=== PATIENT | male | born 1950 | race Caucasian/White ===

== ENCOUNTER → 2016-09-11 | Outpatient (CLI) | payer OTHER | LOC: FCPNEURO 23:16 | PROVIDERS: ATTEND Psychiatry & Neurology Sleep Medicine | DX: G47.33 Obstructive sleep apnea (adult) (pediatric) (principal); G47.31 Primary central sleep apnea ==

== ENCOUNTER → 2018-06-21 | Outpatient (CLI) | payer OTHER | LOC: FIMAGING 12:04 | PROVIDERS: ATTEND Physician Assistant Surgical | DX: G25.0 Essential tremor (principal) ==

== ENCOUNTER 2018-07-10 13:57 | Outpatient (CLI) | payer OTHER ==
[2018-07-10] MEDS ORDERED: FLUMAZENIL 0.5 MG/5 ML MDV IVP PRN (14:23)
[2018-07-10] MEDS ORDERED: MIDAZOLAM 2 MG/2 ML VIAL IVP PRN (14:23)
[2018-07-10] MEDS ORDERED: fentaNYL 100 MCG/2 ML INJ IVP PRN (14:23)
[2018-07-10] MEDS ORDERED: MEPERIDINE 25 MG/ML SYR IVP PRN (14:23)
[2018-07-10] MEDS ORDERED: NALOXONE HCL 0.4 MG/ML INJ IVP PRN (14:23)
[2018-07-10] MEDS ORDERED: NS 1,000 ML IV SCH (14:30)
[2018-07-10] MEDS ORDERED: GADOBUTROL 10 ML VIAL IVP ONE (14:57)
[2018-07-10] MEDS ORDERED: fentaNYL 100 MCG/2 ML INJ ONE (15:26)
[2018-07-10] MEDS ORDERED: MIDAZOLAM 2 MG/2 ML VIAL ONE (15:26)
--- NOTE | 2018-07-10 15:28 | PDPROPOC ---
Sedation Plan of Care Sedation Plan of Care: vital signs stable, mental status noted, patient educated of risks, benefits, alternatives, patient can tolerate sedation ASA Classification: ASA 2 Planned drugs: fentanyl, midazolam Mallampati Score: Class 2 Mallampati Reference Image: Patient passed 3-3-2 rule?: Yes
--- NOTE | 2018-07-10 15:28 | PDGENHP ---
History & Physical Chief Complaint: tremors History of Present Illness: pre-op mri for tremors. Pertinent Past, Social, Family History: previous smoker. colonoscopy. had neuropsych evaluation. Relevant Physical Exam: in no distress today Cardiorespiratory Assessment: rrr, cta
[2018-07-10 17:41] VITALS: BP 142/88
== END 2018-07-10 17:31 | disposition home or self-care (01) ==
LOC: FIMAGING 13:57
PROVIDERS: ATTEND Physician Assistant Surgical
DX: G25.0 Essential tremor (principal)
CPT/HCPCS: 70553; A9585; J2250; J3010

== ENCOUNTER 2018-07-12 07:15 | Inpatient (IN) | payer OTHER ==
--- NOTE | 2018-07-11 16:38 | GHP ---
[f rep st] PREOP HISTORY AND PHYSICAL DATE OF ADMISSION: 07/18/2018 HISTORY OF PRESENT ILLNESS: The patient is a 67-year-old male with essential tremor. The tremor is present bilaterally; however, is more severe in the right hand. He is also right hand dominant. He has a history of essential tremor. His tremor has worsened over the past several years. He has tried treating his tremor with medications, like propranolol and primidone without much relief. PAST MEDICAL HISTORY: Essential tremor. PAST SURGICAL HISTORY: No known surgeries. SOCIAL HISTORY: Patient is retired and . He admits to drinking alcohol socially. Used to be a tobacco user but quit 35 years ago. ALLERGIES: No known drug allergies. CURRENT HOME MEDICATIONS: Requip, lovastatin. REVIEW OF SYSTEMS: Negative except for HPI. FAMILY HISTORY: No pertinent neurosurgical family history. PHYSICAL EXAMINATION: GENERAL: The patient is see and examined, appears to be in no apparent distress. Mood and affect are appropriate. Alert and oriented. HEENT: Pupils are equal and reactive. Extraocular movements are intact. Facial expression is symmetrical. Tongue is midline with protrusion. Hearing is grossly intact. MUSCULOSKELETAL: Muscle strength is well preserved in his upper and lower extremities at a 5/5 and sensation is intact to light touch. ASSESSMENT/PLAN: In summary, the patient is a 67-year-old male with essential tremor. We have discussed proceeding with deep brain stimulation as a surgical option for treatment of his tremor. He has been deemed a suitable candidate through neuropsych evaluation by Dr. Roberto. The patient would like to move forward with deep brain stimulation. We will proceed first by implanting a left DBS lead to the VIM for his right hand tremor. The risks, benefits, and procedure were discussed in detail with the patient. The patient has agreed and consented to proceed with left DBS lead placement to the VIM. /[id number]/MODL MTDD
[2018-07-18] MEDS ORDERED: LR 1,000 ML IV ONE (05:58)
[2018-07-18] MEDS ORDERED: CEFUROXIME 1,500 MG in NS 50 ML IV ONE (06:00)
[2018-07-18] MEDS ORDERED: THROMBIN (BOVINE) 20,000 UNIT VIAL TP ONE (06:36)
[2018-07-18] MEDS ORDERED: GENTAMICIN SULFATE 80 MG/2 ML VIAL ONE (06:37)
[2018-07-18] MEDS ORDERED: LIDOCAINE 2% JELLY 20 ML (UROJECT) ONE (06:37)
[2018-07-18] MEDS ORDERED: BUPIVACAINE 0.25% 30 ML SDV ONE (06:37)
[2018-07-18] MEDS ORDERED: CHLORHEXIDINE GLUC HIBICLENS 118 ML BTL TP ONE (06:37)
[2018-07-18] MEDS ORDERED: POVIDONE-IODINE 30 GM OINTTUBE TP ONE (06:38)
[2018-07-18] MEDS ORDERED: EPINEPHrine 1 MG/ML INJ ONE (06:38)
--- NOTE | 2018-07-18 06:53 | PDHPUP ---
History & Physical Update H&P update statement: This history and physical update is based on an assessment of the patient which was completed after admission or registration (within 24 hours), but prior to the surgery/procedure. H&P update: H&P reviewed & patient examined, no change in patient's condition since H&P completed
[2018-07-18 07:03] LABS: PLATELET COUNT 178 10^3/uL (150-400)
[2018-07-18 07:14] LABS: INR 1.02 (0.83-1.16)
[2018-07-18] MEDS ORDERED: PROPOFOL 200 MG/20 ML VIAL ONE ×2 (07:27→08:02)
[2018-07-18] MEDS ORDERED: DEXMEDETOMIDINE HCL 400 MCG in NS 100 ML IV ONE (07:30)
[2018-07-18] MEDS ORDERED: fentaNYL 100 MCG/2 ML INJ ONE ×2 (07:59→08:47)
[2018-07-18] MEDS ORDERED: PROPOFOL/EMULSION 500 MG/50 ML BOTTLE IV ONE (08:21)
[2018-07-18] MEDS ORDERED: ALBUTEROL 3 ML DEYVIAL IH PRN (08:51)
[2018-07-18] MEDS ORDERED: ONDANSETRON 4 MG/2 ML VIAL IVP PRN ×2 (08:51→10:49)
[2018-07-18] MEDS ORDERED: oxyCODONE IR 5 MG TAB PO PRN (08:51)
[2018-07-18] MEDS ORDERED: DEXAMETHASONE 4 MG/ML VIAL IVP PRN (08:51)
[2018-07-18] MEDS ORDERED: HYDROmorphONE/DILAUDID 2 MG/ML INJ IVP PRN (08:51)
[2018-07-18] MEDS ORDERED: NALOXONE HCL 0.4 MG/ML INJ IVP PRN (08:51)
[2018-07-18] MEDS ORDERED: ACETAMINOPHEN 500 MG TAB PO PRN (08:51)
[2018-07-18] MEDS ORDERED: fentaNYL 100 MCG/2 ML INJ IVP PRN (08:51)
--- NOTE | 2018-07-18 08:51 | PDANEPAE ---
ANE History of Present Illness DBS ANE Past Medical History - Cardiovascular History Hx Hypertension: No Hx Arrhythmias: No Hx Chest Pain: Yes Hx Coronary Artery / Peripheral Vascular Disease: No Hx CHF / Valvular Disease: No Cardiovascular History Comment: PERICARDITIS 10 YEARS AGO - Pulmonary History Hx COPD: No Hx Asthma/Reactive Airway Disease: No Hx Recent Upper Respiratory Infection: No Hx Oxygen in Use at Home: Yes O2 in Use at Home (L/minute): 2.5 Hx Sleep Apnea: Yes Sleep Apnea Screening Result - Last Documented: Positive Pulmonary History Comment: 2.5 L WITH CPAP AT [facility] - Neurologic History Hx Cerebrovascular Accident: No Hx Seizures: No Hx Dementia: No Neurologic History Comment: HAS BILATERAL TREMORS ON CLONAZEPAM - Endocrine History Hx Diabetes: No - Renal History Hx Renal Disorders: No - Liver History Hx Hepatic Disorders: No - Neurological & Psychiatric Hx Hx Neurological and Psychiatric Disorders: No Neurological / Psychiatric History Comment: RAHUL TREMOR - Cancer History Hx Cancer: No - Congenital Disorder History Hx Congenital Disorders: No - GI History Hx Gastrointestinal Disorders: Yes Gastrointestinal History Comment: HERNIA REP - Other Health History Other Health History: WISDOM AND TONSILS - Chronic Pain History Chronic Pain: Yes (KNEE) - Surgical History Prior Surgeries: TONSIL CHILD. HERNIA ANE Review of Systems Review of Systems: - Exercise capacity METS (RN): 4 METS ANE Patient History - Allergies Allergies/Adverse Reactions: No Known Allergies Allergy (Verified 06/22/18 10:17) - Home Medications Home Medications: Lovastatin 40 mg PO HS 06/22/18 [Last Taken 07/17/18] Primidone [Mysoline 50mg (RX)] 75 mg PO HS 06/22/18 [Last Taken 07/17/18] Propranolol HCl [Inderal Xl] 80 mg PO BID 06/22/18 [Last Taken 07/17/18] rOPINIRole HCL [Requip 2mg (*)] 4 mg PO HS 06/22/18 [Last Taken 07/17/18] Multivitamins [Multivitamin (*)] 1 each PO DAILY 07/06/18 [Last Taken 07/17/18] - NPO status NPO Since - Liquids (Date): 07/17/18 NPO Since - Liquids (Time): 19:30 NPO Since - Solids (Date): 07/17/18 NPO Since - Solids (Time): 19:30 - Smoking Hx Smoking Status: Former smoker - Family Anes Hx Family Hx Anesthesia Complications: NONE ANE Labs/Vital Signs - Labs Result Diagrams: 07/18/18 06:30 07/18/18 06:30 - Vital Signs Blood Pressure: 115/77 Heart Rate: 62 Respiratory Rate: 18 O2 Sat (%): 94 Height: 170.18 cm Weight: 104.326 kg ANE Physical Exam - Airway Neck exam: FROM, increased neck circumference, short neck Mallampati Score: Class 2 Mouth exam: normal dental/mouth exam - Pulmonary Pulmonary: clear to auscultation - Cardiovascular Cardiovascular: regular rate and rhythym - ASA Status ASA Status: III ANE Anesthesia Plan Anesthesia Plan: MAC
[2018-07-18] MEDS ORDERED: ONDANSETRON 4 MG/2 ML VIAL ONE (10:34)
[2018-07-18] MEDS ORDERED: POLYETHYLENE GLYCOL 3350 17 GM PKT PO PRN (10:49)
[2018-07-18] MEDS ORDERED: MAGNESIUM HYDROXIDE 30 ML UDCUP PO PRN (10:49)
[2018-07-18] MEDS ORDERED: BISACODYL 10 MG SUPP PR PRN (10:49)
[2018-07-18] MEDS ORDERED: LACTULOSE 20 GM/30 ML UDCUP PO PRN (10:49)
--- NOTE | 2018-07-18 10:49 | POSTOPPROG ---
Post Op Note Date of Operation: 07/18/18 Surgeon: Bibi Wallace Bus Mechanic: Ruth Smith PA-C Anesthesia: IV Sedation, Local (Specify) Pre-op Diagnosis: essential tremor Post-op Diagnosis: essential tremor Procedure: Left DBS VIM lead placement Inf/Abcess present in the surg proc area at time of surgery?: No Depth: Deep Incisional (Fascial) EBL: Minimal Plan Plan: 67 yo male s/p left VIM DBS lead placement for essential tremor - neuro checks - pain control - advance diet as tolerated - maintain SBP < 140 - postop head CT pending - if head CT stable then transfer to the floor - dispo: home tomorrow Exam Awake. Alert Following commands strength full
--- NOTE | 2018-07-18 10:50 | POSTANESTH ---
Post Anesthetic Evaluation Cardiovascular Status: Normal, Stable Respiratory Status: Normal, Stable Level of Consciousness/Mental Status: Can Participate in Eval, Mildly Sleepy, Arousable Pain Control: Adequate, Prn Tx Ordered Nausea/Vomiting Control: Adequate, Prn Tx Ordered Complications Possibly Related to Anesthesia: None Noted
[2018-07-18] MEDS ORDERED: HYDROCODONE/APAP 5/325 TAB PO PRN (10:51)
[2018-07-18] MEDS ORDERED: hydrALAZINE 20 MG/ML VIAL IVP PRN (10:51)
--- NOTE | 2018-07-18 10:57 | GOP ---
[f rep st] OPERATIVE REPORT DATE OF OPERATION: 07/18/2018 SURGEON: Bibi Wallace DO NEUROSURGEON: Bibi Wallace DO PI/SENIOR RESEARCH ASSOCIATE: Ruth Smith PA-C. PREOPERATIVE DIAGNOSIS: Essential tremor. POSTOPERATIVE DIAGNOSIS: Essential tremor. PROCEDURE PERFORMED: 1. Left deep brain stimulator lead placement with Medtronic [id number] lead to the ventral intermediate nu cleus of the thalamus. 2. Stealth stereotaxis. FINDINGS: SPECIMENS: None. ESTIMATED BLOOD LOSS: 10 mL. INDICATIONS: This is a -kbxd-nun male who has been found to be a good candidate for deep b rain stimulation to the VIM nucleus of the thalamus. He has elected to move forward with left-sided stimulator lead placement. DESCRIPTION OF PROCEDURE: He was identified and consented. Sites were marked. Brought to the [facility] room. Anesthetized under local with MAC. Hair was clipped with the OR clippers. Head was jessika nsed with ChloraPrep. We anesthetized the pin incision sites with 0.25% Marcaine with epinephrine. Put povidone iodine on the pins and placed the Leksell frame stereotactically. We then performed a s tereotactic spin with the O-arm 2 and the localizer box, merging this in the S8 frame link software t o the preoperative plan which was an ACPC distance of 28.7, an X of -15.5 to a Y of -7.01 and a Z of -0.14. The entry point was an X of -40.70, Y of 33.69, a Z of 72.69. This corresponded at 19.1 degr ees off midsagittal, 60.8 degrees off midaxial. This all corresponded to Leksell frame coordinates a fter frame registration of an X of 114.5, a Y of 100.5, a Z of 103.5, a ring of 73 degrees, and arc o f 106.5 degrees. He was prepped and draped in the usual sterile fashion. These Leksell frame settin gs were set and triple checked by all providers in the room. The incision site was marked using the cannula and the Leksell frame coordinates. A half-cordero incision was anesthetized with 0.25% Marcaine with epinephrine. Incision was made with a 10 blade. Periosteal was used to elevate the periosteum. Randell clips were used for hemostasis. We then marked the bone with the cannula and then performed a maritime pilot hole. Then drilled a 14 mm Jolanta bur hole, waxed the bone edges, placed the Stimloc device, locked it into place with 5 mm Synthes sc rews, verified the clipping mechanism clipped and locked. We opened the dura with an 11 blade and co agulated with bipolar cautery. Then inserted a center and posterior tract in this patient and then p lugged the hole with a Gelfoam and DuraSeal. Removed the internal cannula, placed the microelectrode s, performed microelectrode recording, got excellent microelectrode recording. It was required that I have an event marketing assistant for this procedure at this point as I needed to remain scrub bed while the BERYL was being performed by the unscrubbed person. Please refer to the BERYL recording di ctation by Ruth Smith. However, we did get excellent motor driving deep and light touch, as wel l as multiple tremor cells. At macro stim, we found that the center tract was the better tract with lower side effects. We elected to place the lead here with the bottom of the contact at the target. The lead was measured and marked. The microelectrodes were removed and we drove to target. We then placed the lead to the appropriate level. We tested each contact. We had excellent tremor control, well programmable lead, elected to leave the lead here. Took an x-ray with the bomb sites, retracte d the cannula, placed the clipping mechanism, clipped and locked it, marked the lead. Took an x-ray and verified it had not migrated. Removed the stylet, brought the lead down and out, placed it near the groove, placing the cap on the lead. We took another x-ray. It had not migrated. Placed the ex tension boot over the lead, placed the extension over the lead protecting each contact. Used the tor que wrench, locked it down. Brought the boot over the extension lead complex, tied it into position with 2-0 silk ties at 2 positions, tunneled posterior with periosteal elevator. Anesthetized the sta b incision posterior with 0.25% Marcaine with epinephrine. Made a stab incision with 11 blade, tunne led posterior to anterior, brought the lead extension down and out the skin, coiling the lead posteri or and around the incision copiously. I took a final x-ray. It had not migrated. Copiously irrigated with over a liter of gentamicin-infused saline. Closed the galea with 2-0 Vicryl pop-offs. The skin was closed with 3-0 running nylon. The wound was dressed with Xeroform and Telf a stapled down. Removed the Leksell frame and wrapped the head. Patient tolerated the procedure wel l. There were no complications. This is an excellent programmable lead. FLUIDS: 800 mL crystalloid. URINE OUTPUT: None. DRAINS: None. COMPLICATIONS: None. /[id number]/MODL
[2018-07-18] MEDS ORDERED: NS W/ 20 KCl/L 1,000 ML IV SCH (11:00)
--- NOTE | 2018-07-18 14:48 | GPN ---
[f rep st] PROCEDURE NOTE DATE OF PROCEDURE: 07/18/2018 PREPROCEDURE DIAGNOSIS: Essential tremor. POSTPROCEDURE DIAGNOSIS: Essential tremor. PROCEDURE PERFORMED: Intraoperative functional subcortical mapping by microelectrode recording and s timulation. COMPLICATIONS: None. INDICATIONS FOR PROCEDURE: Determination of optimal electrode lead placement for deep brain stimulat ion therapy for essential tremor to the VIM. DESCRIPTION OF PROCEDURE: Following the incision on the left, a bur hole was drilled. The arc was t hen arranged with the following coordinates: X 114.5, Y 100.5, Z 103.5, ring 73, arc 106.5. The rec ording microelectrode was then slowly advanced into the brain using a center and posterior tract. Ce ll bursts were noted above target at 15 and 13. There was evidence of change in stimulation with pas sive elbow flexion at 11.8, above target on the center tract, and recording in the center tract began to be robust, around 9.8. We exited VIM at 2.0 above target. In the posterior tract, recordings be michael to be robust, at 9.8 above target. There was evidence of a tremor cell at 9.1 above target and 6 .3 above target. There was change in stimulation with passive elbow flexion at 7.7 above target and to deep touch at the forearm at 4.5 above target. There was change in recordings with light touch at 3.0 above target. We exited VIM at 2.0 above target. We then proceeded with macro stimulation at 5 above target, utilizing the posterior tract. Patient had persistent paresthesias at 1.0. We then e lected to proceed with macro stimulation of the center tract. Patient had improved tremor with trans ient tingling at 3.0. Given this microelectrode recording, we elected to proceed with test stimulati on using the center tract. At 0-, patient had persistent tingling at 1.5 and possibly speech difficu lties with improved tremor. At 1-, patient had improved tremor at 1.5 with transient tingling and po ssible speech difficulties at 2.0. At 2-, patient had improved tremor with no side effects. At 3-, patient had slightly improved tremor and no side effects, up to 3.5. We elected to place the lead in the center tract with the bottom of the lead at target due to the microelectrode recordings and the test stimulation achieved. The patient tolerated the surgery well and was transferred to the floor. /[id number]/MODL
[2018-07-18] MEDS: CEFUROXIME 1,500 MG in NS 50 ML IV SCH ×2 (15:46→23:17)
--- NOTE | 2018-07-18 17:33 | PDMN ---
Medical Necessity Medical necessity: [facility] IP only surgery; cpt 50580 Deep Brain Lead Placement
[2018-07-18] MEDS: ACETAMINOPHEN 325 MG TAB PO PRN ×2 (18:26→23:31)
[2018-07-18] MEDS: SENNOSIDES/DOCUSATE SODIUM TAB PO SCH (20:44)
[2018-07-18] MEDS: PROPRANOLOL SR 80 MG CAP PO SCH (20:50)
[2018-07-18] MEDS ORDERED: PRIMIDONE 50 MG TAB PO SCH (21:00)
[2018-07-18] MEDS ORDERED: PRAVASTATIN SODIUM 40 MG TAB PO SCH (21:00)
[2018-07-19] MEDS: ACETAMINOPHEN 325 MG TAB PO PRN ×2 (05:54→12:04)
[2018-07-19] MEDS: PROPRANOLOL SR 80 MG CAP PO SCH (08:16)
[2018-07-19] MEDS: SENNOSIDES/DOCUSATE SODIUM TAB PO SCH (08:17)
--- NOTE | 2018-07-19 08:42 | NEUSURGPN ---
Date of Surgery: 07/18/18 Post Op Day: 1 Assessment/Plan: 67 yo male s/p left VIM DBS lead placement for essential tremor - neuro stable - pain controlled - tolerating diet - postop head CT without evidence of intracranial hemorrhage - discharge home today Subjective: Minimal surgical pain. Improved right hand tremor. Objective: Awake. Alert. PERRL. EOMI Facial expression symmetrical Muscle strength full at 5/5 - Physician Discussed Patient with DrRadha: Rodrigo Neurosurgery Physical Exam - Vitals, I&O, Labs I and O 07/18/18 07/19/18 07/20/18 05:59 05:59 05:59 Intake Total 4134 Output Total 20 Balance 4114 Weight 104.326 kg Intake: Oral (ml) 1080 IV Intake (ml) 1800 IV Infused (ml) 1254 Cefuroxime 1,500 mg In Ns 50 50 ml @ 200 mls/hr IV ONCALL ONE Rx#:[id number] NS W/ 20 KCl/L 1,000 ml @ 1204 100 mls/hr IV CONT ARLIN Rx#:[id number] Output: Estimated Blood Loss (ml) 20 Other: Intake Quantity Yes Sufficient Number of Voids Toilet 4 1 Vital Signs Temp Pulse Resp BP Pulse Ox 36.6 C 93 17 133/83 H 90 L 07/19/18 07:46 07/19/18 07:46 07/19/18 07:46 07/19/18 07:46 07/19/18 07:46 Laboratory Results 07/18/18 06:30 07/18/18 06:30 ICD10 Worksheet Patient Problems: Problems Problem Status Onset Osteoarthritis of knee Acute
[2018-07-19] MEDS ORDERED: MULTIVITAMINS 1 EACH TAB PO SCH (09:00)
--- NOTE | 2018-07-19 10:40 | ASMTLACE ---
MISSY Length of stay for Answers: 2 days current admission Acuity / Level of Answers: Yes Care: Did the patient have an inpatient admission? # of Emergency department Answers: 0 visits in the last 6 months Score: 5 Date Signed: 07/19/2018 10:40 AM Electronically Signed By:MARLYS Nair
--- NOTE | 2018-07-19 10:44 | ASMTCMCOM ---
CM Note CM Note Notes: Pt had planned DBS placement for essential tremor. Pt was pre-arranged with [facility] by MD office, spoke with pt who declines HHC. Pt medically stable for d/c, no CM d/c needs identified. Date Signed: 07/19/2018 10:44 AM Electronically Signed By:MARLYS Nair
[2018-07-19 11:20] VITALS: BP 140/87
--- NOTE | 2018-07-19 14:52 | GDS ---
[f rep st] DISCHARGE SUMMARY ADMITTING DIAGNOSIS: Essential tremor. DISCHARGE DIAGNOSIS: Essential tremor. PROCEDURE PERFORMED: Left deep brain stimulation lead placement to the ventral intermediate nucleus of thalamus (VIM). CONSULTS: Physical and occupational therapy. HOSPITAL COURSE: The patient is a 67-year-old male who presented to the hospital to proceed with iman p brain stimulation as treatment for his right hand tremor. He underwent surgery by Dr. Bibi Wallace on July 18 with placement of a left deep brain stimulator lead to the VIM. The patient tolerated t he surgery well without complications and was transferred to the floor for further neurological check s and pain control. His postoperative head CT showed no acute intracranial changes or evidence of he morrhage. The patient was seen by Physical and Occupational therapy. On the following morning, the patient was tolerating a diet, voiding without difficulty, pain was controlled and he was medically s table and, thus, he was deemed suitable for discharge. He was discharged to home on July 19, 2018. DISCHARGE INSTRUCTIONS: The patient was asked to follow up with Dr. Bibi Wallace in 2 weeks for sutu re removal and wound check. He is to refrain from any strenuous activities, such as lifting more niyah n 10 pounds and bending. DISCHARGE MEDICATIONS: [place] 5/325 mg 1 tablet every 6 hours as needed for pain. /[id number]/MODL
== END 2018-07-19 12:39 | disposition home or self-care (01) | DRG 27 ==
LOC: F3E 07-18 05:41 → F3N 07-18 13:31
PROVIDERS: ADMIT Neurological Surgery; ATTEND Neurological Surgery
PROC: 00H03MZ Insertion of Neurostimulator Lead into Brain, Percutaneous Approach (ICD-10-PCS; principal; 2018-07-18 07:30)
DX: G25.0 Essential tremor (principal); Z87.891 Personal history of nicotine dependence
CPT/HCPCS: 97161-GP; 97165-GO; C1713; J0171; J0360; J0697; J1580; J2405; J2704; J3010

== ENCOUNTER 2018-08-08 05:41 | Day surgery (SDC) | payer OTHER ==
[2018-08-08] MEDS ORDERED: ACETAMINOPHEN 500 MG TAB PO ONE (06:25)
[2018-08-08] MEDS ORDERED: ceFAZolin 2 GM/DEXTROSE 100 ML IV ONE (06:25)
[2018-08-08] MEDS ORDERED: LR 1,000 ML IV SCH (07:00)
[2018-08-08] MEDS ORDERED: LR 1,000 ML IV ONE (07:03)
[2018-08-08] MEDS ORDERED: CHLORHEXIDINE GLUC HIBICLENS 118 ML BTL TP ONE (07:08)
[2018-08-08] MEDS ORDERED: LIDOCAINE 1% 300 MG/30 ML SDV ONE (07:08)
[2018-08-08] MEDS ORDERED: BUPIVACAINE/EPI 0.25% 30 ML SDV ONE (07:09)
[2018-08-08] MEDS ORDERED: GENTAMICIN SULFATE 80 MG/2 ML VIAL ONE (07:09)
--- NOTE | 2018-08-08 07:19 | PDANEPAE ---
ANE History of Present Illness stage 2 battery for DBS ANE Past Medical History - Cardiovascular History Hx Hypertension: No Hx Arrhythmias: No Hx Chest Pain: No Hx Coronary Artery / Peripheral Vascular Disease: No Hx CHF / Valvular Disease: No Hx Palpitations: No Cardiovascular History Comment: PERICARDITIS 10 YEARS AGO - Pulmonary History Hx COPD: No Hx Asthma/Reactive Airway Disease: No Hx Recent Upper Respiratory Infection: No Hx Oxygen in Use at Home: No Hx Sleep Apnea: Yes Sleep Apnea Screening Result - Last Documented: Positive Pulmonary History Comment: 2.5 L WITH CPAP AT NOC - Neurologic History Hx Cerebrovascular Accident: No Hx Seizures: No Hx Dementia: No Neurologic History Comment: HAS BILATERAL TREMORS - Endocrine History Hx Diabetes: No - Renal History Hx Renal Disorders: No - Liver History Hx Hepatic Disorders: No - Neurological & Psychiatric Hx Hx Neurological and Psychiatric Disorders: No Neurological / Psychiatric History Comment: RAHUL TREMOR - Cancer History Hx Cancer: No - Congenital Disorder History Hx Congenital Disorders: No - GI History Hx Gastrointestinal Disorders: Yes Gastrointestinal History Comment: HERNIA REP - Other Health History Other Health History: WISDOM AND TONSILS - Chronic Pain History Chronic Pain: Yes (KNEE) - Surgical History Prior Surgeries: DBS LEAD PLACEMNENT. RAHUL KNEE REPLACEMENTS. TONSIL CHILD. HERNIA ANE Review of Systems Review of Systems: - Exercise capacity METS (RN): 4 METS ANE Patient History - Allergies Allergies/Adverse Reactions: No Known Allergies Allergy (Verified 08/08/18 06:56) - Home Medications Home medications: home medication list seen and reviewed Home Medications: Lovastatin 40 mg PO HS 06/22/18 [Last Taken 08/07/18] Primidone [Mysoline] 75 mg PO HS 06/22/18 [Last Taken 08/07/18] Propranolol HCl [Inderal Xl] 80 mg PO BID 06/22/18 [Last Taken 08/07/18] rOPINIRole HCL [Requip 2mg (*)] 4 mg PO HS 06/22/18 [Last Taken 08/07/18] Multivitamins [Multivitamin (*)] 1 each PO DAILY 07/06/18 [Last Taken 08/07/18] - NPO status NPO Status: no food or drink >8 hours NPO Since - Liquids (Date): 08/07/18 NPO Since - Liquids (Time): 19:00 NPO Since - Solids (Date): 08/07/18 NPO Since - Solids (Time): 19:00 - Anes Hx Anes Hx: no prior problems - Smoking Hx Smoking Status: Former smoker - Alcohol Use Alcohol Use: None - Family Anes Hx Family Anes Hx: none Family Hx Anesthesia Complications: NONE ANE Labs/Vital Signs - Labs - CBC WBC: reviewed and okay - Vital Signs Blood Pressure: 114/76 Heart Rate: 65 Respiratory Rate: 18 O2 Sat (%): 94 Height: 172.72 cm Weight: 104.326 kg ANE Physical Exam - Airway Neck exam: FROM Mallampati Score: Class 2 Mouth exam: normal dental/mouth exam - Pulmonary Pulmonary: no respiratory distress - Cardiovascular Cardiovascular: regular rate and rhythym - ASA Status ASA Status: II ANE Anesthesia Plan Anesthesia Plan: general endotracheal anesthesia Total IV Anesthesia: No
[2018-08-08] MEDS ORDERED: REMIFENTANIL HCL 1 MG VIAL ONE (07:30)
[2018-08-08] MEDS ORDERED: fentaNYL 100 MCG/2 ML INJ ONE (07:30)
[2018-08-08] MEDS ORDERED: PROPOFOL/EMULSION 500 MG/50 ML BOTTLE IV ONE (07:30)
[2018-08-08] MEDS ORDERED: ONDANSETRON 4 MG/2 ML VIAL ONE (07:31)
[2018-08-08] MEDS ORDERED: LIDOCAINE 2% 100 MG/5 ML SYR ONE (07:31)
[2018-08-08] MEDS ORDERED: LIDOCAINE HCL 160 MG/4 ML LTA KIT TP ONE (07:31)
[2018-08-08] MEDS ORDERED: DEXAMETHASONE 4 MG/ML VIAL ONE (07:31)
[2018-08-08] MEDS ORDERED: ePHEDrine SULFATE 25 MG/5 ML SYR ONE ×2 (07:54→08:26)
[2018-08-08] MEDS ORDERED: ALBUTEROL 3 ML DEYVIAL IH PRN (08:13)
[2018-08-08] MEDS ORDERED: DEXAMETHASONE 4 MG/ML VIAL IVP PRN (08:13)
[2018-08-08] MEDS ORDERED: NALOXONE HCL 0.4 MG/ML INJ IVP PRN (08:13)
[2018-08-08] MEDS ORDERED: fentaNYL 100 MCG/2 ML INJ IVP PRN (08:13)
[2018-08-08] MEDS ORDERED: ONDANSETRON 4 MG/2 ML VIAL IVP PRN (08:13)
[2018-08-08] MEDS ORDERED: LR 500 ML IV PRN (08:13)
[2018-08-08] MEDS ORDERED: oxyCODONE IR 5 MG TAB PO PRN (08:13)
[2018-08-08] MEDS ORDERED: PHENYLEPHRINE HCL 100 MCG/ML SYR IVP PRN (08:13)
[2018-08-08] MEDS ORDERED: MEPERIDINE 25 MG/0.5 ML AMP IVP PRN (08:13)
[2018-08-08] MEDS ORDERED: NS 500 ML IV PRN (08:13)
[2018-08-08] MEDS ORDERED: HYDROCODONE/APAP 5/325 TAB PO PRN (08:13)
[2018-08-08] MEDS ORDERED: METOCLOPRAMIDE 10 MG/2 ML VIAL IVP PRN (08:13)
[2018-08-08] MEDS ORDERED: PROMETHAZINE HCL 25 MG/ML INJ IVP PRN (08:13)
[2018-08-08] MEDS ORDERED: LABETALOL HCL 5 MG/ML 20 ML MDV IVP PRN (08:13)
[2018-08-08] MEDS ORDERED: PROPOFOL 200 MG/20 ML VIAL ONE (08:27)
--- NOTE | 2018-08-08 09:01 | GOP ---
[f rep st] OPERATIVE REPORT DATE OF OPERATION: 08/08/2018 SURGEON: Bibi Wallace DO NEUROSURGEON: Bibi Wallace DO TIN PLATER: Ruth NO. PREOPERATIVE DIAGNOSIS: Essential tremor. POSTOPERATIVE DIAGNOSIS: Essential tremor. PROCEDURE PERFORMED: 1. Placement of left deep brain stimulator generator to indwelling lead with Medtronic Activa SC. 2. Impedances. FINDINGS: SPECIMENS: None. ESTIMATED BLOOD LOSS: 30 mL. INDICATIONS: This is a patient with a previously placed left VIM lead who returns today for generato r placement for his deep brain stimulation. DESCRIPTION OF PROCEDURE: He was identified, consented. Sites were marked. Brought to the operatin g room. Anesthetized under general endotracheal tube anesthesia. Hair was clipped with the OR clipp ers. Incision sites were marked. He was prepped and draped in the usual sterile fashion. Incision at the chest wall was anesthetized with 0.25% Marcaine with epinephrine. Incision was made just late ral to lead extension complex with a 10 blade, and the lead extension complex was dissected out with Metzenbaum, and the chest wall incision was made with a 10 blade, and we created a subcutaneous pocke t with Metzenbaum scissors, and meticulous hemostasis was obtained. We tunneled from the head down t o the chest wall in a single pass, and brought the lead extension up and out, placing the lead into t he generator, locking into place with a torque wrench. We then cut the stay sutures on the boot exte nsion complex, retracted the boot, and then using the torque wrench, protecting each complex, attempt ed to detach the extension. It would not detach. We tried this multiple times, locking and unlockin g it, and it would not detach, so I used a 15 blade to cut the lead extension off. It did slide off. It appeared that there was a contact that was partially crushed from this. We gently dried the julieta d, placed the boot, and placed it into the extension, checking the impedances. The only contact that was partially high and not completely open circuit, was the 1 contact. We locked it into place, rec hecked, and this was the same with about 7000 on that 1 contact. We then replaced the boot, tied the boot down with a 2-0 silk stitch at 2 positions, laid it flat against the skull, coiled the wire pos terior to the generator, sutured it to the chest wall with 2 silk stitch at 2 positions. Copiously i rrigated each incision with over a liter of gentamicin-infused saline. Closed the galea with 2-0 [place] ryl pop-offs and the skin with 3-0 running nylon at the chest wall, closed the fascia with 2-0 Vicryl pop-offs, subcutaneous layer with 0 Vicryl pop-offs. The skin was closed with 4-0 running Monocryl and Dermabond. Head incision was dressed with Xeroform gauze and Tegaderm. Patient tolerated proced ure well. There were no complications. FLUIDS: 900 mL crystalloid. URINE OUTPUT: None. DRAINS: None. COMPLICATIONS: The lead extension did not release and the 1 contact has a slightly high impedance se condary to that. /[id number]/MODL
--- NOTE | 2018-08-08 09:12 | POSTOPPROG ---
Post Op Note Date of Operation: 08/08/18 Surgeon: Bibi Wallace Offset Plate Preparation Supervisor: Katie Smith PA-C Anesthesiologist: Dr. Chavez Anesthesia: GET(General Endotracheal), Local (Specify) Pre-op Diagnosis: Essential tremor Post-op Diagnosis: Essential tremor Procedure: Left DBS generator implant Inf/Abcess present in the surg proc area at time of surgery?: No Depth: Superfical (Skin SQ) EBL: Minimal Plan Plan: 67 yo male s/p implant of left DBS generator - advance diet as tolerated - dc home today Exam Awake. alert Incisions with dressing c/d/i Following commands. HAWK
--- NOTE | 2018-08-08 09:53 | POSTANESTH ---
Post Anesthetic Evaluation Cardiovascular Status: Normal, Stable Respiratory Status: Normal, Stable, Tx Decrease in SpO2 Level of Consciousness/Mental Status: Can Participate in Eval Pain Control: Adequate, Prn Tx Ordered Nausea/Vomiting Control: Adequate, Prn Tx Ordered Complications Possibly Related to Anesthesia: None Noted
[2018-08-08 10:21] VITALS: BP 137/95
== END 2018-08-08 10:15 | disposition home or self-care (01) ==
LOC: FSGY 05:41
PROVIDERS: ATTEND Neurological Surgery
PROC: 0JH60BZ Insertion of Single Array Stimulator Generator into Chest Subcutaneous Tissue and Fascia, Open Approach (ICD-10-PCS; principal; 2018-08-08 07:30)
DX: G25.0 Essential tremor (principal); Z96.653 Presence of artificial knee joint, bilateral
CPT/HCPCS: C1767; C1787; C1883; J0690; J1100; J1580; J2001; J2405; J2704; J3010